=== PATIENT | male | born 1970 | race Caucasian/White ===

== ENCOUNTER 2022-10-31 18:47 | Inpatient (IN) | payer MEDICAID ==
[~2022-10-31] VITALS: Ht 175.3 cm; Wt 85.3 kg
[~2022-10-31 18:47] MED LIST: AMOX-423 GT; FURO-149 GT; LANS30CA53 GT; LOVI40 SQ; ONDA4TAB5 GT; SER100 GT; TYLL650 GT
[2022-10-31 18:55] VITALS: BP_SYST 115
--- NOTE | 2022-10-31 18:55 | NUR ---
Patient to ER bed 1 to gown for evaluation. Side rails up. Report given to MARIANNE LOCKETT.
--- NOTE | 2022-10-31 19:00 | NUR ---
PT PLACED ON VENT.
--- NOTE | 2022-10-31 19:11 | NUR ---
COVID 19 / RSV / MRSA / FLU - SWABS COLLECTED AND SENT TO LAB FOR ANALYSIS Addendum: 10/31/22 at 1922 by SHEFALI COVID / MRSA / FLU - SWAB SENT TO LAB FOR ANALYSIS
--- NOTE | 2022-10-31 19:11 | NUR ---
ER at bedside examining patient.
[2022-10-31] MEDS ORDERED: ASPIRIN 81 MG TAB.CHEW PO ONE (19:15)
[2022-10-31 19:45] LABS: BASOPHILS # (AUTO) 0.1 K/uL (0.0-0.2); BASOPHILS % (AUTO) 0.4 % (0.0-2.0); EOSINOPHILS # (AUTO) 0.1 K/uL (0.0-0.4); EOSINOPHILS % (AUTO) 0.6 % (0.0-4.0); HEMATOCRIT 29.6 % (36-54); LYMPHOCYTES # (AUTO) 0.9 K/uL (1.0-5.5); LYMPHOCYTES % (AUTO) 5.4 % (20.5-51.5); MEAN CORPUSCULAR HEMOGLOBIN 26 pg (27-31); MEAN CORPUSCULAR HGB CONC 31 % (32-36); MEAN CORPUSCULAR VOLUME 85 fL (79.0-98.0); MONOCYTES # (AUTO) 0.5 K/uL (0.0-1.0); MONOCYTES % (AUTO) 3.4 % (1.7-9.3); NEUTROPHILS # (AUTO) 14.3 K/uL (1.8-7.7); NEUTROPHILS % (AUTO) 90.2 % (40.0-70.0); PLATELET COUNT (AUTO) 468 K/uL (130-430); RED BLOOD CELL COUNT(AUTO) 3.48 MIL/uL (4.2-6.2); RED CELL DISTRIBUTION WIDTH 18.6 % (9.0-15.0); WHITE BLOOD COUNT (AUTO) 15.9 K/uL (4.8-10.8)
[2022-10-31] MEDS ORDERED: cefTRIAXone 1 GM IVPB PREMIX 50 ML IV ONE (19:45)
--- NOTE | 2022-10-31 19:49 | NUR ---
PT ON VENTILATOR SETTINGS: AC 16,TV 500, FIO2 50%, PEEP 6
[2022-10-31 20:08] LABS: ANION GAP -4 (5-15); CALCIUM 10.5 mg/dL (8.4-11.0); CHLORIDE 102 mmol/L (98-107); CREATININE 0.51 mg/dL (0.55-1.30); GLUCOSE 140 mg/dL (70-99); UREA NITROGEN, BLOOD 25 mg/dL (8-21)
[2022-10-31 20:17] LABS: ALANINE AMINOTRANSFERASE 15 U/L (12-78); ALBUMIN 1.6 g/dL (3.4-4.8); ASPARTATE AMINOTRANSFERASE 22 U/L (10-37); TOTAL BILIRUBIN 0.2 mg/dL (0.0-1.0)
[2022-10-31 20:25] LABS: GFR AFRICAN AMERICAN 219 mL/min (>90)
--- NOTE | 2022-10-31 20:59 | NUR ---
Admit bed requested Patient will be admitted to care of . Admitted to MED/SURG unit. Diagnosis HYPOXIA, ASPITATION PNEUMONIA Inpatient (Yes or No) YES Observation (Yes or No) NO Orientation concerns or request close to nursing station (Yes or No) NO Covid Status PENDING On vent or bipap VENT Isolation requirements NO Needs a sitter NO From Home (Yes or if No enter name of facility) YES [facility] Requires Dialysis (Yes or No) NO Med Rec Completed (Yes of No) YES
[2022-10-31] MEDS ORDERED: MUPIROCIN 2% TOPICAL OINTMENT 22 GM NS PRN (21:30)
[2022-10-31] MEDS ORDERED: ZOLPIDEM TARTRATE 5 MG TABLET PO PRN (21:30)
[2022-10-31] MEDS ORDERED: MORPHINE 2 MG/ML INJ. SYRINGE IVP PRN ×2 (21:30)
[2022-10-31] MEDS ORDERED: MAGNESIUM SULFATE 50 ML IV PRN (21:30)
[2022-10-31] MEDS ORDERED: QUEtiapine FUMARATE 100 MG TABLET GT PRN (21:30)
[2022-10-31] MEDS ORDERED: LORazepam 2 MG/ML VIAL IVP PRN (21:30)
[2022-10-31] MEDS ORDERED: DOCUSATE SODIUM 100 MG CAPSULE PO PRN (21:30)
[2022-10-31] MEDS ORDERED: POTASSIUM CHLORIDE 20 MEQ TAB.PRT.SR PO PRN (21:30)
[2022-10-31] MEDS ORDERED: ONDANSETRON HCL 4 MG/2 ML VIAL IVP PRN (21:30)
[2022-10-31 21:48] VITALS: BP_SYST 98
[2022-10-31] MEDS: NACL 0.9% 1,000 ML IV SCH (22:16)
[2022-10-31 23:20] VITALS: BP_SYST 96
--- NOTE | 2022-10-31 23:38 | NUR ---
Patient will be admitted to care of DR WALTON. Admitted to unit. Will go to room . Belongings list completed. Complete and up to date summary report printed. SBAR report to be given at bedside with opportunity for questions.
--- NOTE | 2022-11-01 01:01 | NUR ---
ADMIT 52 Y.O. male on VENTILATOR on verbal FI02 40 % MULTIPLE WOUNDS buttocks left & Right left & Right heels are Red , mid upper back wound noted & left chest large wound also mid abdomen wound VS 112/63 98.9 HR 82 RR 16 Regular symmetrical also unlabored HOB kept elevated procedures explained , patient is from [facility] / .
--- NOTE | 2022-11-01 01:24 | NUR ---
MRSA nares collected & sent to lab .
[2022-11-01] MEDS ORDERED: PIPERACILLIN/TAZOBACTAM 3.375 GM/VIAL (ZOSYN) IV ONE (01:38)
[2022-11-01] MEDS: PIPERACILLIN/TAZO 3.375/DEX-IS 50 ML IV SCH ×5 (02:08→23:54)
[2022-11-01 02:30] VITALS: BP_SYST 135
--- NOTE | 2022-11-01 03:00 | NUR ---
CONSULTATION PAGED/CALLED Reason for Consultation: PNA, RESP FAILURE Person Who was Notified: SHARON Consulting Physician: RICARDA Window Cutter Specialty: Ordering Physician: XAVI
--- NOTE | 2022-11-01 05:05 | NUR ---
COLOSTOMY COLECTOMY BAG in place to left lower abdomen clean & intact brown loose stool is noted .
[2022-11-01 07:05] LABS: BASOPHILS # (AUTO) 0.1 K/uL (0.0-0.2); BASOPHILS % (AUTO) 0.4 % (0.0-2.0); EOSINOPHILS # (AUTO) 0.4 K/uL (0.0-0.4); EOSINOPHILS % (AUTO) 2.7 % (0.0-4.0); HEMATOCRIT 27.7 % (36-54); HEMOGLOBIN 8.5 g/dL (14.0-18.0); LYMPHOCYTES # (AUTO) 2.4 K/uL (1.0-5.5); LYMPHOCYTES % (AUTO) 17.4 % (20.5-51.5); MEAN CORPUSCULAR HEMOGLOBIN 26 pg (27-31); MEAN CORPUSCULAR HGB CONC 31 % (32-36); MEAN CORPUSCULAR VOLUME 83 fL (79.0-98.0); MONOCYTES # (AUTO) 0.7 K/uL (0.0-1.0); NEUTROPHILS # (AUTO) 10.2 K/uL (1.8-7.7); NEUTROPHILS % (AUTO) 74.5 % (40.0-70.0); PLATELET COUNT (AUTO) 494 K/uL (130-430); RED BLOOD CELL COUNT(AUTO) 3.32 MIL/uL (4.2-6.2); RED CELL DISTRIBUTION WIDTH 18.6 % (9.0-15.0); WHITE BLOOD COUNT (AUTO) 13.8 K/uL (4.8-10.8)
[2022-11-01 07:28] LABS: CALCIUM 10.1 mg/dL (8.4-11.0); CHLORIDE 100 mmol/L (98-107); CREATININE 0.39 mg/dL (0.55-1.30); GLUCOSE 76 mg/dL (70-99); UREA NITROGEN, BLOOD 25 mg/dL (8-21)
[2022-11-01 07:30] LABS: ANION GAP < 3 (5-15); GFR AFRICAN AMERICAN 299 mL/min (>90)
[2022-11-01 07:47] VITALS: BP_SYST 94
[2022-11-01] MEDS: LANSOPRAZOLE 30 MG CAPSULE.DR GT SCH (08:38)
[2022-11-01] MEDS: FUROSEMIDE 40 MG TABLET GT SCH (08:38)
[2022-11-01] MEDS: HEPARIN SODIUM,PORCINE 5,000 UNITS/ML VIAL SUBCUT SCH ×2 (08:40→22:01)
[2022-11-01] MEDS ORDERED: IPRATROPIUM/ALBUTEROL SULFATE 3 ML AMPUL.NEB (DUONEB) INH PRN (09:45)
[2022-11-01 11:00] VITALS: BP_SYST 100; BP_SYST 156
--- NOTE | 2022-11-01 15:05 | NUR ---
Dietitian Recommendations * Consider switching TF formula to Glucerna 1.5 @ 64 mL/hr Provides: 2304 kcal, 127 g pro, 1166 mL free water Meets: 90% of upper est kcal, 115% of lower est PRO, 55% of est lower water needs * Consider free water flush 150mL Q4H, or per MD * Consider wound supplements: MVI, 250 mg VIT C * Consider 220mg ZnSO4 x 14 days for wound healing GS, MPH, RD Please refer to RD Assessment for further details. Thanks! Addendum: 11/01/22 at [address] Amended: Links added.
[2022-11-01 15:38] VITALS: BP_SYST 112
[2022-11-01 15:40] VITALS: BP_SYST 112
[2022-11-01] MEDS: ACETAMINOPHEN 325 MG TABLET PO PRN (15:51)
[2022-11-01] MEDS: NACL 0.9% 1,000 ML IV SCH (17:45)
--- NOTE | 2022-11-01 18:53 | NUR ---
PT HAVE FEVER TEMP WAS 102F , WAS GIVEN TYLENOL AND COOLING MEASURE. TEMPERATURE WENT DOWN TO 99.6
[2022-11-01 20:00] VITALS: BP_SYST 121
[2022-11-02 00:09] VITALS: BP_SYST 113
[2022-11-02] MEDS: ACETAMINOPHEN 325 MG TABLET PO PRN ×3 (01:13→18:33)
[2022-11-02] MEDS: PIPERACILLIN/TAZO 3.375/DEX-IS 50 ML IV SCH ×3 (05:29→18:21)
[2022-11-02 07:06] LABS: BASOPHILS # (AUTO) 0.1 K/uL (0.0-0.2); BASOPHILS % (AUTO) 0.6 % (0.0-2.0); EOSINOPHILS # (AUTO) 0.1 K/uL (0.0-0.4); EOSINOPHILS % (AUTO) 0.4 % (0.0-4.0); HEMATOCRIT 27.2 % (36-54); HEMOGLOBIN 8.6 g/dL (14.0-18.0); LYMPHOCYTES # (AUTO) 1.7 K/uL (1.0-5.5); LYMPHOCYTES % (AUTO) 8.5 % (20.5-51.5); MEAN CORPUSCULAR HEMOGLOBIN 26 pg (27-31); MEAN CORPUSCULAR HGB CONC 31 % (32-36); MEAN CORPUSCULAR VOLUME 82 fL (79.0-98.0); MONOCYTES # (AUTO) 1.1 K/uL (0.0-1.0); MONOCYTES % (AUTO) 5.6 % (1.7-9.3); NEUTROPHILS # (AUTO) 17.3 K/uL (1.8-7.7); NEUTROPHILS % (AUTO) 84.9 % (40.0-70.0); PLATELET COUNT (AUTO) 481 K/uL (130-430); RED BLOOD CELL COUNT(AUTO) 3.33 MIL/uL (4.2-6.2); RED CELL DISTRIBUTION WIDTH 18.8 % (9.0-15.0); WHITE BLOOD COUNT (AUTO) 20.4 K/uL (4.8-10.8)
[2022-11-02 07:44] LABS: CREATININE 0.65 mg/dL (0.55-1.30)
[2022-11-02 08:00] VITALS: BP_SYST 98
[2022-11-02] MEDS: LANSOPRAZOLE 30 MG CAPSULE.DR GT SCH (08:51)
[2022-11-02] MEDS: NACL 0.9% 1,000 ML IV SCH (08:52)
[2022-11-02] MEDS: HEPARIN SODIUM,PORCINE 5,000 UNITS/ML VIAL SUBCUT SCH ×2 (08:55→21:52)
[2022-11-02] MEDS: FUROSEMIDE 40 MG TABLET GT SCH (09:00)
[2022-11-02 12:00] VITALS: BP_SYST 117
[2022-11-02] MEDS: VANCOMYCIN HCL 1,000 MG in NS 250 ML IV SCH ×2 (13:00→21:48)
[2022-11-02 17:00] VITALS: BP_SYST 109
--- NOTE | 2022-11-02 18:50 | NUR ---
pt nonverbal,open eyes spontaneously,had fever this am 101.8,tylenol 325mg as prn order for fever applied ice packs for cooling measures,temp decreased to 98.7.and spiked temp 100.2 another tylenol 325mg given,give IV antibiotic due,no adverse reactions noted.left abdomen has colostomy with large brown soft stool,colostomy care provided and bag changed total care provided,ventilator dependent on AC 20,tidal volume 500,Fio2 40% peep 6 sat 99%,suctioned thick yellow sputum thru trach,HOB up 30 degrees on tube feeding jevity runs 64cc per hr via GT.no residual per GT.K level 3.1 per today lab,give Kdur 40meq as prn order for hypokalema,needs attended,safety maintained.continue to monitor pt.
--- NOTE | 2022-11-02 19:42 | NUR ---
Opening note Received SBAR report from CATHRYN Walters. Received patient resting in bed awake, AOx0. Eyes open, he is non-verbal on ventilator with settings as ordered. IVF infusing via IV to RFA. Charlton catheter drainage bag to gravity, draining abby colored urine. Family is visiting at bedside. Bed is locked in lowest position, side rails up 2x, and call light w/in reach.
[2022-11-02 20:00] VITALS: BP_SYST 108
--- NOTE | 2022-11-02 20:05 | NUR ---
Reposition Patient was repositioned and turned. Suction and oral care provided.
[2022-11-03 00:18] VITALS: BP_SYST 103
[2022-11-03] MEDS: PIPERACILLIN/TAZO 3.375/DEX-IS 50 ML IV SCH ×4 (01:29→17:26)
--- NOTE | 2022-11-03 04:25 | NUR ---
Tube feeding Hung new bag of tube feeding, running at 64 ml/hr, no residual noted. Provided 100ml of FWF. Changed dressing at G-tube exit. Provided oral care and suction.
[2022-11-03 06:48] LABS: BASOPHILS # (AUTO) 0.1 K/uL (0.0-0.2); BASOPHILS % (AUTO) 0.7 % (0.0-2.0); EOSINOPHILS # (AUTO) 0.3 K/uL (0.0-0.4); EOSINOPHILS % (AUTO) 2.2 % (0.0-4.0); HEMATOCRIT 25.5 % (36-54); LYMPHOCYTES # (AUTO) 2.4 K/uL (1.0-5.5); LYMPHOCYTES % (AUTO) 17.2 % (20.5-51.5); MEAN CORPUSCULAR HEMOGLOBIN 26 pg (27-31); MEAN CORPUSCULAR HGB CONC 31 % (32-36); MEAN CORPUSCULAR VOLUME 83 fL (79.0-98.0); MONOCYTES # (AUTO) 0.8 K/uL (0.0-1.0); MONOCYTES % (AUTO) 5.5 % (1.7-9.3); NEUTROPHILS # (AUTO) 10.2 K/uL (1.8-7.7); NEUTROPHILS % (AUTO) 74.4 % (40.0-70.0); PLATELET COUNT (AUTO) 375 K/uL (130-430); RED BLOOD CELL COUNT(AUTO) 3.06 MIL/uL (4.2-6.2); RED CELL DISTRIBUTION WIDTH 18.2 % (9.0-15.0); WHITE BLOOD COUNT (AUTO) 13.7 K/uL (4.8-10.8)
--- NOTE | 2022-11-03 06:53 | NUR ---
Dr. Palacio , notified of allergy to Vanco Informed Dr. Palacio, that paper records from [facility] indicate patient is allergic to Vanco. Two doses given, one on my shift and I did not notice redness, rash or change to skin. Dr. Palafox said continue Vanco;TORB
[2022-11-03 07:05] LABS: CALCIUM 9.3 mg/dL (8.4-11.0); CREATININE 0.42 mg/dL (0.55-1.30)
[2022-11-03] MEDS: VANCOMYCIN HCL 1,000 MG in NS 250 ML IV SCH (07:14)
[2022-11-03 07:45] VITALS: BP_SYST 96
[2022-11-03] MEDS: LANSOPRAZOLE 30 MG CAPSULE.DR GT SCH (08:48)
[2022-11-03] MEDS: FUROSEMIDE 40 MG TABLET GT SCH (08:49)
[2022-11-03] MEDS: HEPARIN SODIUM,PORCINE 5,000 UNITS/ML VIAL SUBCUT SCH ×2 (08:55→21:39)
[2022-11-03 11:50] VITALS: BP_SYST 103
[2022-11-03] MEDS: NACL 0.9% 1,000 ML IV SCH (12:52)
[2022-11-03 17:22] VITALS: BP_SYST 95
--- NOTE | 2022-11-03 18:35 | NUR ---
Pt has been stable the whole shift. no fever, bp wnl. dc order, no arrangement yet by dc land use planner. Pt's made aware. She said she will be working tomorrow so we need to call the son as she is not able to answer call during work hour.
--- NOTE | 2022-11-03 20:35 | NUR ---
Low B/P Informed Dr. Palacio patient has low BP 88/52 (HR 82). Received medication orders; 500ml NS Bolus once, now and Midodrine 10mg tab once. TORB. Dr. Palacio also wants us to follow up with discharge: I did not see notes from case management. I notified the director community health nursing, she was not able to contact Madhu Lai we do not have a ed case manager on shift nor do we have a charge nurse / or resource nurse to assist. Will f/u as best as time allows. Addendum: 11/03/22 at 2348 by Maritza Edward RN Dr. Palacio also ordered to hold all Blood Pressure meds
[2022-11-03] MEDS ORDERED: NS 500 ML IV ONE (20:45)
[2022-11-03] MEDS ORDERED: MIDODRINE HCL 5 MG TABLET (PROAMATINE) PO ONE (20:45)
--- NOTE | 2022-11-03 21:39 | NUR ---
Meds. B/P update s/p NS Bolus BP 94/55, HR 80. Scheduled meds given, including Midodrine via GT. No residual noted, provided 100ml FWF, wctm
[2022-11-04] MEDS: PIPERACILLIN/TAZO 3.375/DEX-IS 50 ML IV SCH ×3 (00:05→11:39)
--- NOTE | 2022-11-04 00:07 | NUR ---
[facility] CALLED AND SPOKE WITH [facility] SHE SAID THAT THEY DOCT HAVE A BED READY FOR PT AND TO HAVE CAKE WRAPPER FOLLOW UP IN MORNING SO THEY CAN SET THINGS UP . WILL ENDORSE TO NEXT SHIFT . RN AWARE
[2022-11-04 01:24] VITALS: BP_SYST 92
[2022-11-04 04:00] VITALS: BP_SYST 91
--- NOTE | 2022-11-04 05:30 | NUR ---
wound care, pictures done, patient tolerated
--- NOTE | 2022-11-04 05:45 | NUR ---
colostomy bag was changed
[2022-11-04] MEDS: NACL 0.9% 1,000 ML IV SCH (05:51)
[2022-11-04 08:00] VITALS: BP_SYST 88
[2022-11-04 08:00] LABS: BASOPHILS # (AUTO) 0.1 K/uL (0.0-0.2); BASOPHILS % (AUTO) 0.9 % (0.0-2.0); EOSINOPHILS % (AUTO) 8.5 % (0.0-4.0); HEMATOCRIT 25.4 % (36-54); HEMOGLOBIN 7.8 g/dL (14.0-18.0); LYMPHOCYTES # (AUTO) 2.6 K/uL (1.0-5.5); LYMPHOCYTES % (AUTO) 20.9 % (20.5-51.5); MEAN CORPUSCULAR HEMOGLOBIN 26 pg (27-31); MEAN CORPUSCULAR HGB CONC 31 % (32-36); MEAN CORPUSCULAR VOLUME 84 fL (79.0-98.0); MONOCYTES # (AUTO) 0.6 K/uL (0.0-1.0); MONOCYTES % (AUTO) 5.2 % (1.7-9.3); NEUTROPHILS # (AUTO) 7.9 K/uL (1.8-7.7); NEUTROPHILS % (AUTO) 64.5 % (40.0-70.0); PLATELET COUNT (AUTO) 328 K/uL (130-430); RED BLOOD CELL COUNT(AUTO) 3.04 MIL/uL (4.2-6.2); RED CELL DISTRIBUTION WIDTH 18.6 % (9.0-15.0); WHITE BLOOD COUNT (AUTO) 12.3 K/uL (4.8-10.8)
[2022-11-04 08:47] LABS: CALCIUM 9.5 mg/dL (8.4-11.0); CREATININE 0.44 mg/dL (0.55-1.30)
[2022-11-04] MEDS: FUROSEMIDE 40 MG TABLET GT SCH (09:00)
[2022-11-04] MEDS: LANSOPRAZOLE 30 MG CAPSULE.DR GT SCH (09:17)
[2022-11-04] MEDS: HEPARIN SODIUM,PORCINE 5,000 UNITS/ML VIAL SUBCUT SCH (09:19)
--- NOTE | 2022-11-04 11:13 | NUR ---
Discharge Planning: DCP arranged transport with [facility] with RT (trach/Vent) 2:00pm to [facility] [phone] Rm 32C. DCP made CM and nurse aware patient packet taken to nurse station.
[2022-11-04 11:33] VITALS: BP_SYST 100
--- NOTE | 2022-11-04 12:48 | NUR ---
REPORT GIVEN TO FACILITY Report given to CATHRYN Garcia at [facility]. All questions answered.
--- NOTE | 2022-11-04 12:50 | NUR ---
NOTIFIED FAMILY OF DISCHARGE TO [facility] Spoke to son Hero and notified him that the patient would return to [facility] today.
[2022-11-04] MEDS ORDERED: MIDODRINE HCL 5 MG TABLET (PROAMATINE) PO ONE (13:30)
[2022-11-04 13:54] VITALS: BP_SYST 100
--- NOTE | 2022-11-04 15:42 | NUR ---
COMPUTER EDUCATION PROFESSOR TIME CHANGED Patient will be picked up with [facility] within 1 hr, spoke with Nayeli.
[2022-11-04 16:54] VITALS: BP_SYST 112
--- NOTE | 2022-11-04 17:15 | NUR ---
PT TRANSFERRED Report given to CATHRYN Garcia at [facility]. Transfer packet with Transfer Orders and Medication Reconciliation form given to EMT with report. Exitcare provided. [facility] ID band removed, replaced with ID band with pt's name and . All belongings sent with patient. Patient left floor via gurney escorted by EMT in no distress.
[2022-11-04] MEDS ORDERED: MIDODRINE HCL 5 MG TABLET (PROAMATINE) PO SCH (21:00)
== END 2022-11-04 17:25 | DRG 720 ==
LOC: SED 18:47 → STU 20:54
PROVIDERS: ADMIT General Practice; ATTEND General Practice
PROC: 5A1945Z Respiratory Ventilation, 24-96 Consecutive Hours (ICD-10-PCS; principal; 2022-10-31)
DX: A41.9 Sepsis, unspecified organism (principal); J96.21 Acute and chronic respiratory failure with hypoxia; J69.0 Pneumonitis due to inhalation of food and vomit; N17.0 Acute kidney failure with tubular necrosis; E44.0 Moderate protein-calorie malnutrition; R13.10 Dysphagia, unspecified; I11.0 Hypertensive heart disease with heart failure; Z20.822 Contact with and (suspected) exposure to COVID-19; I50.9 Heart failure, unspecified; Z93.3 Colostomy status; Z93.0 Tracheostomy status; Z86.16 Personal history of COVID-19; Z87.01 Personal history of pneumonia (recurrent); Z68.27 Body mass index [BMI] 27.0-27.9, adult
CPT/HCPCS: 36415; 71045; 80048; 80053; 80202; 83036; 83605; 83735; 83880; 84484; 85025; 87040; 87081; 93005; 94003; 94760; 96365; 99285; G0378; J0696; J1644; J2543; J3370; J7030; J7040; J7050; J7060